=== PATIENT | female | born 1980 | race African-American/Black ===

== ENCOUNTER 2018-09-06 05:15 | Inpatient (IN) | payer SELFPAY ==
[2018-09-06] VITALS (11 sets, daily range): BP systolic 105–131; BP diastolic 67–89
[~2018-09-06] VITALS: Ht 157.5 cm; Wt 104.3 kg
[2018-09-06] MEDS ORDERED: LACTATED RINGER'S 1,000 ML IV SCH (07:08)
[2018-09-06 07:39] LABS: Basophils # (auto) 0 uL; Basophils % (auto) 0.9 % (0.0-2.0); Eosinophils # (auto) 0.2 uL; Eosinophils % (auto) 2.8 % (0.0-7.0); Hematocrit 27.2 % (36.0-46.0); Hemoglobin 9.2 g/dL (12.2-16.2); Lymphocytes % (auto) 19.1 % (10.0-50.0); Mean Corpuscular Hemoglobin 28.6 pg (28.0-32.0); Mean Corpuscular Hgb Conc. 33.8 g/dL (32.0-36.0); Mean Corpuscular Volume 84.7 fL (80.0-100.0); Monocytes # (auto) 0.6 uL; Monocytes % (auto) 10.3 % (0.0-12.0); Neutrophils # (auto) 3.7 uL; Neutrophils % (auto) 66.9 % (37.0-80.0); Nucleated Red Blood Cells % 0.1 %; Platelet Count (auto) 132 10^3/uL (140-450); Red Blood Cells 3.21 10^6/uL (4.0-5.20); Red Cell Distribution Width 16.6 % (11.8-14.3); White Blood Cell 5.5 10^3/uL (4.4-10.8)
[2018-09-06 07:52] LABS: Albumin 2.3 g/dL (3.4-5.0); BUN/Creatinine Ratio 14.3; Calcium 8.3 mg/dL (8.5-10.1); Potassium 4.2 mmol/L (3.5-5.1)
[2018-09-06 07:54] LABS: Bilirubin, Total 0.2 mg/dL (0.2-1.0); Total Protein 6.2 g/dL (6.4-8.2)
[2018-09-06 07:55] LABS: INR < 0.93 (0.9-1.15); Partial Thromboplastin Time 28.1 sec (23.64-32.05)
[2018-09-06 08:23] LABS: Urine Bacteria FEW /hpf (None Seen); Urine Blood Negative /uL (Negative); Urine Mucus FEW (None Seen); Urine Specific Gravity 1.015 (1.001-1.035); Urine WBC 8 /hpf (0 - 5)
[2018-09-06] MEDS ORDERED: TETRACAINE 1% INJ 2 ML VIAL IJ ONE (08:26)
[2018-09-06] MEDS ORDERED: fentaNYL CITRATE 100 MCG/2 ML VL ONE (08:29)
[2018-09-06] MEDS ORDERED: OXYTOCIN 10 UNIT/ML 10ML VIAL ONE (08:29)
[2018-09-06] MEDS ORDERED: ePHEDrine SULFATE 50 MG/ML AMP ONE (08:29)
[2018-09-06] MEDS ORDERED: MIDAZOLAM HCL 1MG/1ML-2 ML VIAL ONE ×2 (08:29→10:27)
[2018-09-06] MEDS ORDERED: ONDANSETRON HCL 4 MG/2 ML VIAL ONE (08:29)
[2018-09-06] MEDS ORDERED: SODIUM CHLORIDE LOCK 10 ML ONE (08:29)
[2018-09-06] MEDS ORDERED: MORPHINE SULF(PF) 0.5MG/ML 10ML VIAL ONE (08:29)
[2018-09-06 08:31] LABS: Alcohol, Urine < 3.0 mg/dL (0-5); Amphetamine Screen, Urine NEGATIVE (NEGATIVE); Barbiturate Scree,Urine NEGATIVE (NEGATIVE); Benzodiazephine Screen, Urine NEGATIVE (NEGATIVE); Cannabinoid Screen, Urine POSITIVE (NEGATIVE); Cocaine Screen, Urine NEGATIVE (NEGATIVE); Opiate Scree,Urine NEGATIVE (NEGATIVE); Phencyclidine Screen, Urine NEGATIVE (NEGATIVE)
[2018-09-06] MEDS ORDERED: EPINEPHrine HCL 1 MG/1 ML AMP ONE (09:14)
[2018-09-06] MEDS ORDERED: GENTAMICIN SULFATE 80 MG in D5W 5% 100 ML IV ONE (10:00)
[2018-09-06] MEDS ORDERED: CLINDAMYCIN 600MG IV 50 ML IV SCH (10:00)
[2018-09-06] MEDS ORDERED: ONDANSETRON HCL 4 MG/2 ML VIAL IV PRN (11:45)
[2018-09-06] MEDS ORDERED: HYDROmorphone HCL 2 MG/ML VL IV PRN ×2 (11:45→12:00)
[2018-09-06] MEDS ORDERED: CLINDAMYCIN 900MG IV 50 ML IV ONE (11:45)
[2018-09-06] MEDS ORDERED: NALOXONE HCL 0.4 MG/ML VIAL IV PRN (12:00)
[2018-09-06] MEDS ORDERED: KETOROLAC TROMETH 15 mg/ml 1ML VL IV SCH (12:00)
[2018-09-06] MEDS ORDERED: diphenhdrAMINE HCL 50 MG/1 ML VL IV PRN (12:00)
[2018-09-06] MEDS ORDERED: METOCLOPRAMIDE HCL 5MG/ml INJ 2ml VIAL IV ONE (12:00)
[2018-09-06] MEDS: LACTATED RINGER'S 1,000 ML IV SCH ×2 (13:00→18:58)
--- NOTE | 2018-09-06 13:00 | NUR ---
Post Op for LDRP: Received patient from PACU via bed to room 103. Patient A/A/Ox4, abdominal binder and bilateral SCD's are in place, IV fluids placed on pump and infusing per order, incisional site dressing clean/dry/intact and Crowder Catheter to gravity draining clear yellow urine. Incentive Spirometer at bedside and instruction on proper use with return demonstration done by patient.
[2018-09-06] MEDS ORDERED: DEXTROSE 10% 250 ML IV SCH (15:00)
--- NOTE | 2018-09-06 15:00 | NUR ---
PT REPORT RECEIVED FROM Hodan BATISTA RN ON STABLE PATIENT, ASSUMING CARE. NO DISTRESS NOTED.
--- NOTE | 2018-09-06 16:40 | NUR ---
PT STATES SHE IS NAUSEOUS, WILL GIVE ZOFRAN ORDERED.
[2018-09-06 16:54] LABS: Basophils # (auto) 0.1 uL; Eosinophils # (auto) 0.1 uL; Eosinophils % (auto) 0.8 % (0.0-7.0); Monocytes # (auto) 0.8 uL; Nucleated Red Blood Cells % 0.1 %
[2018-09-06 17:08] LABS: Hemoglobin 10.8 g/dL (12.2-16.2); Neutrophils % (auto) 79.5 % (37.0-80.0)
[2018-09-06 17:10] LABS: Basophils % (auto) 0.9 % (0.0-2.0); Hematocrit 32.8 % (36.0-46.0); Lymphocytes # (auto) 1.1 uL; Lymphocytes % (auto) 10.6 % (10.0-50.0); Mean Corpuscular Hemoglobin 26.7 pg (28.0-32.0); Mean Corpuscular Hgb Conc. 32.8 g/dL (32.0-36.0); Mean Corpuscular Volume 81.6 fL (80.0-100.0); Monocytes % (auto) 8.2 % (0.0-12.0); Neutrophils # (auto) 8.1 uL; Platelet Count (auto) 145 10^3/uL (140-450); Red Blood Cells 4.03 10^6/uL (4.0-5.20); Red Cell Distribution Width 16.6 % (11.8-14.3); White Blood Cell 10.2 10^3/uL (4.4-10.8)
--- NOTE | 2018-09-06 17:20 | NUR ---
PT DENIES ANY NAUSEA AT THIS TIME, AND DENIES NAY PAIN. WILL CONTINUE TO MONITOR.
[2018-09-06] MEDS: CLINDAMYCIN 600MG IV 50 ML IV SCH (18:58)
[2018-09-06] MEDS ORDERED: KETOROLAC TROMETH 15 mg/ml 1ML VL IV PRN ×2 (20:00)
[2018-09-07] VITALS (7 sets, daily range): BP systolic 111–124; BP diastolic 64–81
[2018-09-07] MEDS: LACTATED RINGER'S 1,000 ML IV SCH ×3 (02:46→20:19)
[2018-09-07] MEDS: CLINDAMYCIN 600MG IV 50 ML IV SCH ×2 (02:47→10:36)
[2018-09-07] MEDS ORDERED: WITCH HAZEL-GLYCERIN PAD TOP PRN (04:15)
[2018-09-07] MEDS ORDERED: DERMOPLAST 60ML BOTTLE TOP PRN (04:15)
[2018-09-07] MEDS ORDERED: PHISODERM TOP SOLN 240ML BTL TOP PRN (04:15)
--- NOTE | 2018-09-07 04:30 | NUR ---
Ambulation: Julien dc'd with clean technique following deflation of balloon. Patient tolerated well with no complaints of pain. Dressing removed, incision CDI, 13 tim noted. Patient OOB with standby assistance by RN. Patient ambulated to bathroom with steady gait. Patient unable to void due to removal of julien catheter immediately prior to ambulation. [facility]icare teaching provided with returned demonstration by patient. Clean gown provided and bed linen changed. Patient ambulated in hallway and back to chair with steady gait, no distress noted.
[2018-09-07 05:06] LABS: RPR Non Reactive (Non Reactive)
[2018-09-07] MEDS ORDERED: HYDROcodone-ACET 5/325MG TAB PO PRN (06:15)
[2018-09-07 07:39] LABS: Basophils # (auto) 0 uL; Eosinophils # (auto) 0.1 uL; Hemoglobin 8.4 g/dL (12.2-16.2); Mean Corpuscular Volume 84.4 fL (80.0-100.0); Monocytes # (auto) 0.6 uL; Neutrophils # (auto) 5.3 uL; Nucleated Red Blood Cells % 0.1 %
[2018-09-07 07:41] LABS: Basophils % (auto) 0.4 % (0.0-2.0); Hematocrit 24.5 % (36.0-46.0); Lymphocytes # (auto) 0.7 uL; Lymphocytes % (auto) 10.1 % (10.0-50.0); Mean Corpuscular Hgb Conc. 34.4 g/dL (32.0-36.0); Monocytes % (auto) 8.4 % (0.0-12.0); Neutrophils % (auto) 80.1 % (37.0-80.0); Platelet Count (auto) 112 10^3/uL (140-450); Red Cell Distribution Width 16.6 % (11.8-14.3); White Blood Cell 6.6 10^3/uL (4.4-10.8)
[2018-09-07 08:07] LABS: Rubella Antibodies, IgG 1.41 index (Immune >0.99)
--- NOTE | 2018-09-07 09:45 | NUR ---
pediatric social worker jeanette in to see pt
[2018-09-07] MEDS: HYDROcodone-ACET 5/325MG TAB PO PRN ×2 (10:37→15:59)
--- NOTE | 2018-09-07 14:27 | NUR ---
social studies teacher at bedside
--- NOTE | 2018-09-07 15:41 | NUR ---
Received referral to see pt as she was positive for THC. The baby was not positive. Pt explained that she uses THC for her wrists as she has carpal tunnel. The pt states she does not smoke THC or use other drugs. Pt lives with her and mother in [facility]. Pt was made aware that a CPS report would have to be made. Pt stated she understood.
[2018-09-07] MEDS: IBUPROFEN 800 MG TAB PO PRN (20:17)
[2018-09-07] MEDS ORDERED: PREN27TA7 PO (21:30)
[2018-09-07] MEDS ORDERED: DOCUSATE SOD 100 MG CAP PO ONE (22:43)
[2018-09-07] MEDS: DOCUSATE SOD 100 MG CAP PO SCH (22:52)
[2018-09-07] MEDS: SIMETHICONE 80 MG CHEWABLE TABLET PO PRN (22:52)
[2018-09-08 02:50] VITALS: BP 114/74
[2018-09-08] MEDS: LACTATED RINGER'S 1,000 ML IV SCH (05:57)
[2018-09-08] MEDS: SIMETHICONE 80 MG CHEWABLE TABLET PO PRN (06:04)
[2018-09-08 07:25] VITALS: BP 121/9
[2018-09-08] MEDS: HYDROcodone-ACET 5/325MG TAB PO PRN ×2 (08:09→19:34)
--- NOTE | 2018-09-08 08:29 | NUR ---
machine operator hop worker called and made report. The number is [phone]. Spoke with Dalila Santso
[2018-09-08] MEDS: DOCUSATE SOD 100 MG CAP PO SCH ×2 (10:36→22:27)
[2018-09-08 11:11] VITALS: BP 127/74
[2018-09-08] MEDS: IBUPROFEN 800 MG TAB PO PRN ×2 (12:36→22:26)
--- NOTE | 2018-09-08 14:17 | NUR ---
pharm chein pharmacist states ok to give TDap vaccine with egg allergy, no contraindication for administration
--- NOTE | 2018-09-08 14:44 | NUR ---
IV removal IV DC'd to right hand with sterile technique, catheter fully intact. Pressure dressing applied to site. Patient tolerated procedure well. Discharged with aftercare instructions
[2018-09-08 14:46] VITALS: BP 123/74
--- NOTE | 2018-09-08 16:45 | NUR ---
activity pt ambulating meek with and . tolerating well. pt addressed concern with visitors in A bed, states she is not happy that multiple young children are in room that could possibly bring germs to her . requesting to possibly sign out AMA, charge notified of pt concern. pt has option to move room or sign out if that is her request, not recommended due to her procedure and risks, etc. pt notified of options, states she will speak with her and let staff know her decision.
--- NOTE | 2018-09-08 17:15 | NUR ---
pt moved to 8A with all personal belongings and sig other
[2018-09-08 19:30] VITALS: BP 124/72
[2018-09-08 23:00] VITALS: BP 122/83
[2018-09-09 03:00] VITALS: BP 135/75
[2018-09-09] MEDS ORDERED: TETANUS-DIPTH-ACEL PERTUSSIS 0.5ML SYRG IM ONE (05:00)
[2018-09-09] MEDS: HYDROcodone-ACET 5/325MG TAB PO PRN (05:30)
--- NOTE | 2018-09-09 06:45 | NUR ---
Discharge: Discharge instructions given as ordered. Pt encouraged to follow up with THREAD MACHINE OPERATOR as instructed. All questions and concerns addressed. Patient verbalized understanding. Medication reconciliation completed and copy given to patient. All required/requested vaccines given and copies of vaccinations given to patient. Patient encouraged to prepare to depart unit.
--- NOTE | 2018-09-09 06:50 | NUR ---
C/S Staple Removal DC Note: Orders received to remove tim. Tim removed using sterile technique. Lower abdominal incision approximated, no drainage/redness/inflammation visualized at time of removal. Steri-strips applied. Education provided on incisional care. Patient verbalized understanding and willingness to comply to instructions/teaching provided.
[2018-09-09 07:20] VITALS: BP 117/75
--- NOTE | 2018-09-09 09:21 | NUR ---
Follow up phone call placed to Vania Trujillo social service coordinator from [employer] assigned to case. Message left for on her voice mail for her to return call.
[2018-09-09 10:40] VITALS: BP 118/74
[2018-09-09] MEDS: DOCUSATE SOD 100 MG CAP PO SCH (11:01)
--- NOTE | 2018-09-09 11:50 | NUR ---
director social welfare called regarding pt clearance for discharge awaiting carito to call back
--- NOTE | 2018-09-09 12:00 | NUR ---
manager social carito returned phone call no hold for discharge, pt to continue with discharge as planned.
--- NOTE | 2018-09-09 14:00 | NUR ---
Discharge: Patient taken to vehicle via ambulation refusing wheelchair with all personal belongings, accompanied by staff and family member. No distress noted at time of departure, no adverse changes in status since initial assessment.
== END 2018-09-09 14:00 | disposition home or self-care (01) | DRG 786 ==
LOC: LDRP 05:15 → OBSVTOIN 08:40 → LDRP 17:25
PROVIDERS: ADMIT Specialist; ATTEND Specialist
PROC: 10D00Z1 Extraction of Products of Conception, Low, Open Approach (ICD-10-PCS; principal; 2018-09-06 10:01)
PROC: 3E0234Z Introduction of Serum, Toxoid and Vaccine into Muscle, Percutaneous Approach (ICD-10-PCS; 2018-09-09)
DX: O34.211 Maternal care for low transverse scar from previous cesarean delivery (principal); O99.42 Diseases of the circulatory system complicating childbirth; O40.3XX0 Polyhydramnios, third trimester, not applicable or unspecified; O99.214 Obesity complicating childbirth; Z37.0 Single live birth; Z3A.38 38 weeks gestation of pregnancy; Z88.8 Allergy status to other drugs, medicaments and biological substances; Z23 Encounter for immunization; E66.01 Morbid (severe) obesity due to excess calories; O77.0 Labor and delivery complicated by meconium in amniotic fluid; I25.10 Atherosclerotic heart disease of native coronary artery without angina pectoris; Z88.1 Allergy status to other antibiotic agents
CPT/HCPCS: 36415; 51702; 59025; 76805; 80053; 80307; 81001; 81002; 84112; 85025; 85610; 85730; 86592; 86703; 86762; 86850; 86900; 86901; 86920; 87340; 90715; 94760; 96361; 96365; 96366; 96374; G0378; J0171; J2250; J2405; J2590; J3490; J7060